=== PATIENT | male | born 1955 | race Caucasian/White ===

== ENCOUNTER 2024-10-25 06:39 | Day surgery (SDC) | payer OTHER, MEDICARE ==
[2024-10-25] MEDS ORDERED: Midazolam 1 MG/ML 2 ML SDV ONE (07:00)
[2024-10-25] MEDS ORDERED: Propofol 200 MG/20 ML SDV ONE ×2 (07:00→08:31)
[2024-10-25] MEDS ORDERED: fentaNYL 100 MCG/2 ML SDV ONE (07:00)
[2024-10-25] MEDS: Lactated Ringers 1,000 ML IV SCH (07:45)
[2024-10-25] MEDS: Lidocaine 1% w/EPINEPHrine 50 ML, Sodium Bicarbonate 5 MEQ in Sodium Chloride 0.9% 950 ML INJECT ONE (08:30)
[2024-10-25] MEDS: Lidocaine 1% with EPINEPHrine 1:100,000 50 ML MDV ONE (09:05)
== END 2024-10-25 10:10 | disposition home or self-care (01) ==
LOC: JP.SDS 06:39
PROVIDERS: ATTEND Surgery
DX: I83.023 Varicose veins of left lower extremity with ulcer of ankle (principal); I10 Essential (primary) hypertension; I48.91 Unspecified atrial fibrillation
CPT/HCPCS: 36475; 76998; J1642; J2250; J2704; J3010; J7030; J7120; J3490